=== PATIENT | male | born 1990 | race Native Hawaiian/Other Pacific Islander ===

== ENCOUNTER 2023-08-29 15:55 | Emergency (ER) | payer MEDICAID, OTHER ==
[2023-08-29] MEDS ORDERED: Lactated Ringers 1,000 ML IV ONE (17:14)
[2023-08-29] MEDS ORDERED: Dicyclomine 10 MG Cap PO ONE (17:15)
[2023-08-29] MEDS ORDERED: cloNIDine 0.1 MG Tab PO ONE (17:15)
[2023-08-29] MEDS ORDERED: Sodium Chloride 0.9% 10 ML Syringe FLUSH PRN (17:15)
[2023-08-29 17:26] LABS: BASOPHILS ABSOLUTE AUTO 0.05 K/uL (0.00-0.10); BASOPHILS PERCENT AUTO 0.2 % (0.1-1.3); HEMATOCRIT 50.9 % (38.4-49.7); HEMOGLOBIN 17.4 g/dL (12.9-16.9); IMMATURE GRAN ABSOLUTE AUTO 0.13 K/uL (0.00-0.23); IMMATURE GRAN PERCENT AUTO 0.6 % (0.0-0.7); LYMPHOCYTES ABSOLUTE AUTO 0.76 K/uL (0.8-3.3); LYMPHOCYTES PERCENT AUTO 3.4 % (11.4-47.7); MEAN CORPUSCULAR HEMOGLOBIN 27.7 pg (31.6-35.5); MEAN CORPUSCULAR HGB CONC 34.2 g/dL (31.6-35.5); MEAN CORPUSCULAR VOLUME 80.9 fL (81.4-99.0); MONOCYTES ABSOLUTE AUTO 0.94 K/uL (0.20-0.90); MONOCYTES PERCENT AUTO 4.2 % (3.3-12.6); NEUTROPHILS ABSOLUTE AUTO 20.39 K/uL (1.0-7.6); NEUTROPHILS PERCENT AUTO 91.6 % (40.0-78.1); PLATELET COUNT,PLT 446 K/uL (130-375); RED BLOOD CELL COUNT 6.29 M/uL (4.14-5.76); WHITE BLOOD CELL COUNT,WBC 22.3 K/uL (3.2-11.0)
[2023-08-29 17:42] LABS: ANION GAP 19.5 mmol/L (5.0-14.0); CALCIUM 9.6 mg/dL (8.5-10.1); EST CRCL DRUG DOSING (CG) 94.37 mL/min; POTASSIUM,K 3.5 mmol/L (3.6-5.2)
== END 2023-08-29 18:50 ==
LOC: JP.ED 15:55
DX: F11.23 Opioid dependence with withdrawal (principal)
CPT/HCPCS: 36415; 80048; 83605; 83735; 85025; 96360; 99284; A9270; J7120

== ENCOUNTER 2023-09-18 16:01 | Emergency (ER) | payer MEDICAID | END 2023-09-18 16:30 | disposition left against medical advice (07) | LOC: JP.ED 16:01 | DX: Z53.21 Procedure and treatment not carried out due to patient leaving prior to being seen by health care provider (principal) ==